=== PATIENT | male | born 1965 | race Caucasian/White ===

== ENCOUNTER 2021-02-17 22:11 | Emergency (ER) | payer BC ==
[2021-02-17 22:22] VITALS: BP 171/124; PULSE 105; RESP 18; TEMP 99.1
--- NOTE | 2021-02-17 22:37 | ED ---
Skin/Abscess/FB HPI - General Chief complaint: Skin/Abscess/Foreign Body Stated complaint: lump under arm Time Seen by Provider: 02/17/21 22:25 Source: patient, RN notes reviewed, old records reviewed Mode of arrival: ambulatory Limitations: no limitations - History of Present Illness Initial comments: This is a 55-year-old male who is noticed some redness and swelling underneath his left arm. Patient does admit to history of significant anxiety and stated the swelling is cause him some significant anxiety. He has concern for some sort of new cancer. Patient has no significant shortness of breath or any other complaints, states he anxiety is what led to his symptoms MD complaint: rash, abscess/boil, other (Swelling under her left arm) -: unknown Tetanus Up to Date: unsure Location: LUE Severity: mild Severity scale (1-10): 1 Consistency: constant Improves with: none Worsens with: none Context: none Associated symptoms: other (none) Treatments Prior to Arrival: none - Related Data Previous Rx's Medication Instructions Recorded Sulfamethox-Tmp 800-160Mg [Bactrim 2 tab PO Q12HR #28 tab 02/18/21 DS 800-160 mg] Allergies Allergy/AdvReac Type Severity Reaction Status Date / Time No Known Allergies Allergy Verified 02/17/21 22:22 Review of Systems ROS Statement: Those systems with pertinent positive or pertinent negative responses have been documented in the HPI. ROS Other: All systems not noted in ROS Statement are negative. Past Medical History Past Medical History: Hypertension History of Any Multi-Drug Resistant Organisms: None Reported Past Surgical History: Cholecystectomy Past Psychological History: Anxiety Smoking Status: Never smoker Past Alcohol Use History: Rare Past Drug Use History: None Reported General Exam - General Exam Comments Initial Comments: Left under arm and axillary folliculitis Limitations: no limitations General appearance: alert, in no apparent distress Head exam: Present: atraumatic, normocephalic, normal inspection Eye exam: Present: normal appearance, PERRL, EOMI. Absent: scleral icterus, conjunctival injection, periorbital swelling ENT exam: Present: normal exam, mucous membranes moist Neck exam: Present: normal inspection. Absent: tenderness, meningismus, lymphadenopathy Respiratory exam: Present: normal lung sounds bilaterally. Absent: respiratory distress, wheezes, rales, rhonchi, stridor Cardiovascular Exam: Present: regular rate, normal rhythm, normal heart sounds. Absent: systolic murmur, diastolic murmur, rubs, gallop, clicks GI/Abdominal exam: Present: soft, normal bowel sounds. Absent: distended, tenderness, guarding, rebound, rigid Extremities exam: Present: normal inspection, full ROM, normal capillary refill. Absent: tenderness, pedal edema, joint swelling, calf tenderness Back exam: Present: normal inspection Neurological exam: Present: alert, oriented X3, CN II-XII intact Psychiatric exam: Present: normal affect, normal mood Skin exam: Present: warm, dry, intact, normal color. Absent: rash Course Vital Signs 02/17/21 22:17 Temperature 99.1 F Pulse Rate 105 H Respiratory 18 Rate Blood Pressure 171/124 O2 Sat by Pulse 98 Oximetry - Reevaluation(s) Reevaluation #1: Medical record is reviewed Symptoms improved here in the ER Patient informed of results and questions answered Medical Decision Making - Medical Decision Making 55 male DF for evaluation patient has significant left under arm folliculitis. Patient placed on antibiotics and can be discharged home - Radiology Data Radiology results: report reviewed (Chest x-rays negative for acute disease), image reviewed Disposition Clinical Impression: Folliculitis Disposition: HOME SELF-CARE Condition: Good Instructions (If sedation given, give patient instructions): Folliculitis (ED) Prescriptions: Sulfamethox-Tmp 800-160Mg [Bactrim DS 800-160 mg] 2 tab PO Q12HR #28 tab Is patient prescribed a controlled substance at d/c from ED?: No Referrals: Chivo Swann MD [Primary Care Provider] - 1-2 days
[2021-02-17] MEDS ORDERED: SULFAMETHOX-TMP 800-160MG 1 EACH TAB PO STA (22:38)
[2021-02-17] MEDS ORDERED: SULFAMETH-TMP DS STARTER PACK 2 TAB BTL PO STA (22:38)
--- NOTE | 2021-02-17 23:04 | XR ---
EXAMINATION TYPE: XR chest 2V DATE OF EXAM: 02/17/2021 COMPARISON: NONE HISTORY: Wrist pain TECHNIQUE: 2 views FINDINGS: Heart and mediastinum are normal. Lungs are clear. Diaphragm is normal. Bony thorax appears normal. IMPRESSION: Normal chest.
== END 2021-02-18 00:10 | disposition home or self-care (01) ==
LOC: EC 22:11
DX: L73.9 Follicular disorder, unspecified (principal); I10 Essential (primary) hypertension
CPT/HCPCS: 71046; 99284

== ENCOUNTER → 2022-11-04 | Outpatient (CLI) | payer BC ==
[2022-11-04 11:35] LABS: Partial Thromboplastin Time 25.5 sec (22.0-30.0); Prothrombin Time 10.6 sec (9.0-12.0)
[2022-11-04 18:33] LABS: HCT 51.4 % (39.6-50.0); HGB 16.8 g/dL (13.0-17.0); MCH 28.3 pg (27.0-32.0); MCHC 32.7 g/dL (32.0-37.0); MCV 86.7 fL (80.0-97.0); Mean Platelet Volume 11.4 fL (9.5-12.2); NRBC Per 100 WBC 0 /100 WBCS (0.0-0.0); Platelet Count 347 X 10*3/uL (140-440); RBC 5.93 X 10*6/uL (4.40-5.60); RDW 14.1 % (11.5-14.5); WBC 5.79 X 10*3/uL (4.50-10.00)
[2022-11-04 18:38] LABS: African American GFR (CKD) 85.9 (60.0-200.0); Albumin 4.5 g/dL (3.8-4.9); Albumin/Globulin Ratio 1.45 (1.60-3.17); Anion Gap 11.4 mmol/L (10.00-18.00); BUN/Creat Ratio 15.64 Ratio (12.00-20.00); Blood Urea Nitrogen 17.2 mg/dL (9.0-27.0); Calcium 9.6 mg/dL (8.7-10.3); Carbon Dioxide 24.6 mmol/L (20.0-27.5); Globulin 3.1 g/dL (1.6-3.3); Non-African American GFR(CKD) 74.1 (60.0-200.0); Potassium 3.6 mmol/L (3.5-5.5); Total Bilirubin 0.4 mg/dL (0.30-1.20); Total Protein 7.6 g/dL (6.2-8.2)
[2022-11-04 22:42] LABS: Appearance,Urine Clear (Clear); Bilirubin,Urine Negative (Negative); Blood,Urine Negative (Negative); Color,Urine Yellow (Yellow); Ketones,Urine Negative (Negative); Nitrite,Urine Negative (Negative); Specific Gravity,Urine 1.016 (1.001-1.030); Urobilinogen,Urine 0.2 (0.2,1.0)
== END | disposition home or self-care (01) ==
LOC: LABPAT 10:15
PROVIDERS: ATTEND Orthopaedic Surgery
DX: Z01.812 Encounter for preprocedural laboratory examination (principal); M16.11 Unilateral primary osteoarthritis, right hip
CPT/HCPCS: 80053; 81003; 85027; 85610; 85730; 87070

== ENCOUNTER 2022-11-16 09:48 | Day surgery (SDC) | payer BC ==
[2022-11-11 14:45] VITALS: BMI 34.2
[~2022-11-16 09:48] MED LIST: ACETAMINOPHEN TAB 500 MG TAB PO PRN; DEXAMETHASONE SOD PHOSPHATE 10 MG/ML 1 ML VIAL IV PRN; DOCUSATE 100 MG CAP PO PRN; FAMOTIDINE 20 MG/2 ML VIAL IVP PRN; KETOROLAC 15 MG/ML 1 ML VIAL IVP PRN; ONDANSETRON 4 MG/2 ML VIAL IVP PRN; TRANEXAMIC ACID IN NACL,ISO-OS 1,000 MG in SALINE 1 100ML.BAG IVPB PRN; oxyCODONE ER 10 MG TAB.ER.12H PO PRN
[2022-11-16] MEDS ORDERED: METOCLOPRAMIDE 5 MG/ML 2 ML VIAL IVP PRN (10:05)
[2022-11-16] MEDS ORDERED: HYDROmorphone 0.5 MG/0.5 ML SYRINGE IVP PRN ×3 (10:05→14:00)
[2022-11-16] MEDS ORDERED: LIDOCAINE 1% (10MG/ML) FOR IV START INTRADERMA PRN (10:05)
[2022-11-16] MEDS ORDERED: LACTATED RINGERS 1,000 ML IV SCH (10:05)
[2022-11-16] MEDS ORDERED: MIDAZOLAM 2 MG/2 ML VIAL IVP ONE (11:32)
[2022-11-16] MEDS ORDERED: DEXAMETHASONE SOD PHOSPHATE 4 MG/ML 1 ML VIAL ONE (11:36)
[2022-11-16] MEDS ORDERED: GLYCOPYRROLATE 0.2 MG/ML 2 ML VIAL ONE (11:36)
[2022-11-16] MEDS ORDERED: MIDAZOLAM 2 MG/2 ML VIAL ONE (11:36)
[2022-11-16] MEDS ORDERED: PHENYLEPHRINE-0.9% NACL SYG 1,000 MCG/10 ML SYRINGE ONE (11:36)
[2022-11-16] MEDS ORDERED: HYDROmorphone (PF) 1 MG/ML ONE (11:36)
[2022-11-16] MEDS ORDERED: SUCCINYLCHOLINE CHLORIDE 200 MG/10 ML VIAL IV ONE (11:36)
[2022-11-16] MEDS ORDERED: NEOSTIGMINE 1 MG/ML 10 ML VIAL ONE (11:36)
[2022-11-16] MEDS ORDERED: LIDOCAINE 2% INJ 20 MG/ML (2 ML VIAL) ONE (11:36)
[2022-11-16] MEDS ORDERED: fentaNYL (PF) 50 MCG/ML 2 ML AMP ONE (11:36)
[2022-11-16] MEDS ORDERED: ROPIVACAINE 5 MG/ML 30 ML VIAL ONE (11:36)
[2022-11-16] MEDS ORDERED: ePHEDrine 50 MG/ML 1 ML VIAL ONE (11:36)
[2022-11-16] MEDS ORDERED: ROCURONIUM 10 MG/ML (5 ML VIAL) IV ONE (11:36)
[2022-11-16] MEDS ORDERED: PROPOFOL 10 MG/ML 20 ML VIAL IV ONE (11:36)
[2022-11-16] MEDS ORDERED: TRANEXAMIC ACID IN NACL,ISO-OS 1,000 MG/100 ML BAG ONE (11:36)
[2022-11-16] MEDS: ROPIVACAINE/EPI/CLONIDINE/KET 50 ML SYRINGE MISCELLANE PRN ×2 (11:54→13:30)
[2022-11-16] MEDS ORDERED: LACTATED RINGERS 1,000 ML IV ONE ×2 (13:00→15:15)
[2022-11-16] MEDS ORDERED: HYDROcodone/APAP 5-325MG 1 EACH TAB PO PRN (14:00)
[2022-11-16] MEDS ORDERED: HYDROmorphone 1 MG/ML 1 ML SYRINGE IVP PRN (14:00)
[2022-11-16] MEDS ORDERED: ONDANSETRON 4 MG/2 ML VIAL IVP PRN (14:00)
[2022-11-16] MEDS ORDERED: NALOXONE 0.4 MG/ML 1 ML VIAL IV PRN (14:00)
[2022-11-16] MEDS ORDERED: hydrOXYzine pamoate 25 MG CAP PO PRN (14:00)
--- NOTE | 2022-11-16 14:01 | P.OP ---
Date of Procedure: 11/16/22 Preoperative Diagnosis: Right hip osteoarthritis Postoperative Diagnosis: Same Procedure(s) Performed: Right direct anterior total hip arthroplasty Implants: 1. Brittney Trident II Acetabular Cup, Size #58 2. [place] Insignia Size #9 Femoral Stem, Standard Offset 3. Biolox delta femoral head, 36 mm, - 5 mm neck Anesthesia: carmen CHIU Surgeon: Darrell Rodriguez Treadle Cut Off Saw Operator #1: Tito Nash Estimated Blood Loss (ml): 200 IV fluids (ml): 1,100 Pathology: none sent Condition: stable Disposition: PACU Indications for Procedure: The patient is a very pleasant 57-year-old male with a history of bilateral hip pain. His x-rays showed mild to moderate arthritis. His exam was consistent with hip arthritis so he was sent for an image guided injection into his right hip. This provided almost complete relief of his pain. I met with the patient in the office. After the effects of the injection wore off he had pain in the right hip and groin. He had pain with passive range of motion of the hip. We discussed continued nonsurgical treatment versus surgery. Even the patient's age and complete response to an injection to both agreed a total hip replacement would be the most predictable solution for his pain having, failed nonsurgical treatment. I had a long discussion with the patient in the office on the potential risks and complications of an elective total hip replacement through a direct anterior approach. Risks discussed include, but are certainly not limited to, risks from anesthesia, superficial infection requiring local wound care or antibiotics, deep barrie-prosthetic joint infection and the treatment required to eradicate infection, intraoperative fracture, postoperative periprosthetic fracture, damage to local blood vessels or nerves particularly the lateral femoral c utaneous nerve, delayed wound healing requiring local wound care or possibly surgical debridement, hip dislocation, leg length discrepancy, soft tissue irritation around the total hip implant such as iliopsoas tendinitis or trochanteric bursitis, wear and osteolysis from the implants, squeaking or audible noises, groin pain, thigh pain, heterotopic ossification, stiffness, aseptic loosening of the implants, dissatisfaction with surgical outcome, need for revision surgery, DVT, PE, swelling of the operative extremity, acute coronary event, stroke, failure to thrive, and possibly loss of life or limb. The patient understands that while these are the most common complications after an elective hip replacement there are certainly other less common complications possible. They were given ample time to ask questions regarding the potential complications of a hip replacement. Following our discussion the patient provided their verbal and written consent to go forward with an elective total hip replacement. Operative Findings: Large tear effusion in the right hip. Inflamed synovium. Moderate cartilage loss through out the femoral head. Severe cartilage loss with peripheral osteophytes in the acetabulum. Description of Procedure: The patient was identified in the preoperative holding area and the correct hip was marked with my initials. I reviewed the procedure and consent with the patient. All of their questions were answered. The patient was then brought back into the operating room by anesthesia. While on the [facility] anesthesia was administered by the anesthesia team. Preoperative antibiotics and tranexamic acid were also given. After the patient was under anesthesia I examined their ankles to determine their preoperative leg length discrepancy. The skin over the anterior aspect of the hip was shaved to remove hair over the site of planned incision. Both feet and ankles were padded with webril and boots for the [place] were applied. The patient was then carefully transferred onto the [place] table. A perineal post was immediately placed. The arms were placed on arm holders and were well-padded. Both boots were secured to the spars on the [place] table. The patient was positioned so that the pelvis was centered over the post. Nonsterile drapes were applied. A timeout was performed identifying the correct patient, operative extremity, and procedure. At this point fluoroscopy was brought in to take preoperative images of the pelvis and operative hip. Using the standing AP pelvis from the office as a template, a comparable image was obtained with fluoroscopy. A metallic bar was used to create a bi-ischial line for use as a reference to leg length adjustments during the procedure. Global offset was also measured on both the operative and nonoperative leg. Fluoroscopy was then brought out and a pre-scrub using a chlorhexidine scrub brush was performed. The operative limb was then prepped and draped in the standard sterile fashion. An anterior longitudinal incision was made lateral and distal to the ASIS. The skin and subcutaneous tissues were incised sharply. The underlying tensor fa scia was identified and incised in its midportion. The fascia was dissected free from the underlying muscle and the muscle belly was retracted. A blunt tipped cobra retractor was placed over the superior neck under the muscle fibers of the gluteus minimus. The deep enveloping fascia of the tensor was incised. The anterior leash of vessels were then identified and cauterized. The fascia between the rectus and the capsule was then incised and the pre-capsular fat was excised. A second Cobra was placed inferior to the neck. The interval between the rectus and iliocapsularis and the hip capsule was developed and a retractor was placed carefully over the anterior rim of the acetabulum. A T-shaped anterior capsulotomy was performed. The superior capsular leaflet was left in place in the inferior capsular flap was excised. The Cobra retractors were placed intracapsularly. We then made a femoral neck osteotomy according to preoperative and intraoperative templating and confirmed the level of the osteotomy using fluoroscopic imaging. The femoral head was removed, passed off to the back table, and sized. The superior capsular flap was excised. Retractors were placed circumferentially exposing the acetabulum. We then circumferentially debrided the acetabulum free of labrum and osteophytes. The pulvinar was removed to fully visualize the cotyloid fossa. We then sequentiall y reamed to achieve peripheral fit and excellent bleeding subchondral bone. The socket was thoroughly irrigated. The acetabular component was impacted into the appropriate position using fluoroscopy to guide version, inclination, and depth of insertion taking care to have a comparable image of the AP pelvis to the standing image taken in the office. An excellent press-fit was achieved and final position was confirmed using fluoroscopy. The press fit was augmented with bony cancellus dome screws. The liner was then impacted into the socket. Attention was then turned to the femur. The remnant dorsal lateral capsule was excised. The short external rotators were visible and protected. A bone hook was used to confirm appropriate translation of the trochanter away from the acetabulum. The leg was then extended and adducted and the bone hook was used to elevate the femur for broaching. A box osteotome and blunt tipped canal sound was then utilized to gain access to the femoral canal. We then sequentially broached the femur in appropriate anteversion until excellent torsional stability was achieved. The neck cut was brought flush to the trial broach with a calcar planar. A trial neck and head were then placed onto the broach and the hip was atraumatically reduced under direct visualization. External rotation to 90 was performed to assess stability. Fluoroscopy was brought in. An AP and lateral fluoroscopic image of the proximal femur was obtained to assess position and fill of the trial broach. An AP of the pelvis was then obtained and matched to the preoperative image taken. A bi-ischial bar was then placed and measurements were taken to assess changes in length and offset. The hip was then carefully dislocated, the proximal femur was exposed, and the trial implants were removed. The wound and proximal femur was thoroughly irrigated using sterile saline and pulsatile lavage. The final femoral implant was dispensed and gently tapped into place generating an excellent press-fit. The trunnion was cleansed and the final head was tapped into place to engage the Wright taper. The acetabulum was irrigated and visualized to be free of debris. The hip was carefully reduced. Stability was checked clinically with external rotation to 90 and there was no evidence of instability. Final fluoroscopic images were taken. The wound was then thoroughly irrigated and soaked with a dilute Betadine rinse for 3 minutes. 3 L of sterile saline was irrigated through the wound using pulsatile lavage. Local anesthetic cocktail was injected into the soft tissues around the surgical field. A deep drain was placed. The wound was then closed in layers. A sterile dressing was placed over the surgical incision and drain site. The drapes were taken down and the patient was carefully transferred off of the [place] table. Following removal of the boots the leg lengths felt acceptable. The patient was then taken to recovery room having tolerated the procedure well. Tito Nash PA-C was required as a skilled teachers' assistant for patient positioning, surgical exposure, retraction, placement of implants, and closure of the surgical wound. PLAN: The patient can weight-bear as tolerated on the operative extremity. 2 doses of postoperative antibiotics. DVT prophylaxis with aspirin 81 mg twice a day based on preoperative risk stratification. Physical therapy for gait training. Discontinue drain postoperative day #1 if output is less than 100 mL per shift.
--- NOTE | 2022-11-16 14:31 | XR ---
Intraoperative/procedural fluoroscopic services were provided for total right hip arthroplasty. Hardw are appears intact with appropriate alignment. Total fluoroscopy time is 25 seconds with a total of 7 submitted images to PACS. Please see the operative note for further details.
[2022-11-16] MEDS: HYDROcodone/APAP 5-325MG 1 EACH TAB PO PRN (17:35)
[2022-11-16] MEDS ORDERED: ALPRAZolam 0.25 MG TAB PO PRN (18:03)
--- NOTE | 2022-11-16 18:05 | P.CONS ---
History of Present Illness - Reason for Consult Consult date: 11/16/22 HTN Requesting physician: Darrell Rodriguez - Chief Complaint leg pain - History of Present Illness Patient is a 57-year-old male with hypertension who presented for elective direct anterior right total hip arthroplasty. Patient tolerated the procedure well without any immediate postoperative complications. He has a history of hallucinations with anesthesia in the past but is currently doing well. Patient seen and examined at bedside. He reports pain with movement of his leg, and pain is 5 out of 10 at rest. He states is having severe pain prior to surgery. He has slightly worried about taking pain medications as he has had a history of hallucinations and poor reactions to anesthesia in the past. Lately he denies any headache, lightheadedness, dizziness, nausea, vomiting. He was asking for his as needed Xanax encase he has a poor reaction to the pain medications. He usually takes 0.25 mg Pertinent positives and negatives as discussed in HPI, a complete review of systems was performed and all other systems are negative. Vital signs reviewed General: nontoxic, no distress, appears at stated age Derm: warm, dry Head: atraumatic, normocephalic, symmetric Eyes: EOMI, no lid lag, anicteric sclera, pupils equal round reactive to light ENT: Nose and ears atraumatic, no thrush, no pharyngeal erythema Neck: No thyromegaly, no cervical lymphadenopathy, trachea midline, supple Mouth: no lip lesion, mucus membranes moist Cardiovascular: S1S2 reg, no murmur, positive posterior tibial pulse bilateral, no edema, capillary refill less than 2 seconds Lungs: clear to auscultation bilateral, no rhonchi, no rales, no wheeze, no accessory muscle use Ext: no gross muscle atrophy, muscle strength 5 out of 5 bilateral upper extremities, no contractures Neuro: CN II-XII grossly intact, finger to nose within normal limits, Psych: Alert, oriented, appropriate affect Assessment/Plan: 57-year-old male status post direct anterior right total hip arthroplasty HTN - resume BP medcation in AM Anxity -resume lexapro in AM and prn xanax - follow BP post-op and check CBC in AM Thank you for allowing us to participate in the care of this pleasant patient. Do not hesitate to contact us with questions. Someone can be reached from the [facility] hospitalist group all hours of the day at [phone] or via [employer]. Past Medical History Past Medical History: Hypertension History of Any Multi-Drug Resistant Organisms: None Reported Past Surgical History: Cholecystectomy Past Anesthesia/Blood Transfusion Reactions: Previous Problems w/ Anesthesia Additional Past Anesthesia/Blood Transfusion Reaction / Comm: PT HAD A DIFFICULT TIME WAKING UP AFTER HIS GIOVANI, WHEN HE DID GO HOME HE WAS SOMEWHAT CONFUSED AND WAS RUNNING AROUND THE HOUSE AND STANDING IN THE STREET. HIS SON HAD A SIMILAR REACTION TO ANESTH. Past Psychological History: Anxiety Smoking Status: Never smoker Past Alcohol Use History: None Reported Past Drug Use History: None Reported - Past Family History Mother Family Medical History: No Reported History Medications and Allergies Home Medications Medication Instructions Recorded Confirmed Type Benazepril/Hydrochlorothiazide 1 each PO DAILY 11/11/22 11/11/22 History [Benazepril-Hctz 20-25 mg Tab] Escitalopram [Lexapro] 5 mg PO DAILY 11/11/22 11/11/22 History Metoprolol Tartrate [Lopressor] 12.5 mg PO BID 11/11/22 11/11/22 History Allergies Allergy/AdvReac Type Severity Reaction Status Date / Time No Known Allergies Allergy Verified 11/16/22 11:12 Physical Exam Osteopathic Statement: *. No significant issues noted on an osteopathic structural exam other than those noted in the History and Physical/Consult. Vitals: Vital Signs Temp Pulse Resp BP Pulse Ox 11/16/22 15:23 91 16 108/57 93 L 11/16/22 15:08 84 16 107/54 93 L 11/16/22 14:53 86 16 106/55 95 11/16/22 14:38 93 16 112/55 98 11/16/22 14:23 90 16 110/53 96 11/16/22 14:08 97.1 F L 78 16 100/50 92 L 11/16/22 11:37 80 16 124/86 98 11/16/22 10:20 97.4 F L 75 16 143/85 98 Intake and Output 11/16/22 11/16/22 11/16/22 06:59 14:59 22:59 Intake Total 2049 50 Output Total 200 Balance 1849 50 Intake: IV 2049 50 Output: Estimated Blood Loss 200 Other: Weight 115.4 kg
[2022-11-16] MEDS: ASPIRIN 81 MG PO SCH (20:03)
[2022-11-16] MEDS: LACTATED RINGERS 1,000 ML IV SCH (20:03)
--- NOTE | 2022-11-16 20:25 | P.ANPRN ---
Procedure Note - Anesthesia - Nerve Block Performed Right Rm Single Time Out Performed: Yes Date of Procedure: 11/16/22 Procedure Start Time: 11:31 Procedure Stop Time: 11:34 Location of Patient: PreOp Indication: Acute Post-Operative Pain, Requested by Surgeon Sedation Type: Sedate with meaningful contact maintained Preparation: Sterile Prep Position: Supine Needle Types: Pajunk Needle Gauge: 21 Ultrasound used to visualize needle placement: Yes Ultrasound used to observe medication spread: Yes Blood Aspirated: No Pain Paresthesia on Injection Noted: No Resistance on Injection: Normal Image Stored and Saved: Yes Events: Uneventful and Well Tolerated (Ropivacaine 0.5% 20 mL plus dexamethasone 4 mg)
[2022-11-16] MEDS ORDERED: SENNOSIDES-DOCUSATE SODIUM 1 EACH TAB PO SCH (21:00)
[2022-11-17] MEDS: LACTATED RINGERS 1,000 ML IV SCH ×2 (01:09→11:02)
[2022-11-17] MEDS: ASPIRIN 81 MG PO SCH (08:18)
[2022-11-17] MEDS: HYDROcodone/APAP 5-325MG 1 EACH TAB PO PRN (08:19)
--- NOTE | 2022-11-17 08:42 | P.DS ---
Providers Expected date of discharge: 11/17/22 Attending physician: Darrell Rodriguez Consults: 11/16/22 14:00 Consult Physician Routine Consulting Provider: Radha Mccartney Consult Reason/Comments: medical management Do you want consulting provider notified?: Yes Primary care physician: Stated None Hospital Course: This is a 57-year-old male who has been followed in our office by Dr. Rodriguez f or continued complaints of right hip pain due to right hip osteoarthritis. Treatment options were discussed, and patient elected to undergo a right total hip arthroplasty. Patient was seen pre-operatively by Dr. Swann and cleared for surgery. Patient underwent a right direct anterior total hip arthroplasty on 11/16/22. The procedure was performed without complication or sequelae. The patient is doing fairly well postoperatively. Vital signs and labs are stable on postoperative day #1. Patient was examined bedside today. Patient states he is overall doing very well and the pain in his right hip is well-controlled. His hemovac drain was pulled earlier this morning. He has been ambulating with a walker with minimal assistance. Patient is comfortable being discharged home today. Patient denies new complaints the day of discharge. Hemovac drain removed bedside during exam. On examination, the patient is sitting up in the bed in no apparent distress. He is alert and orientated 3. On inspection of the right hip, there is a clean, dry, intact surgical dressing in place. There is no bleeding or drainage to the dressing. Patient has good strength and ROM of the right ankle and toes. Motor and sensory function is intact of the right lower extremity. Femoral nerve function intact.The dorsalis pedis pulse is easily palpable, the right lower extremity is warm and well perfused with brisk capillary refill. Calf is soft and non-tender to palpation. Patient is discharged home with home health in good condition, pending medical clearance. Patient will follow-up with Dr. Rodriguez in the office in 2 weeks. Please see med rec for accurate list of discharge medication. Plan - Discharge Summary Discharge Rx Participant: No New Discharge Prescriptions: New Aspirin 81 mg PO BID 30 Days #60 tab Docusate [Colace] 100 mg PO BID #60 capsule HYDROcodone/APAP 5-325MG [[place] 5-325] 1 - 2 tab PO Q6HR PRN 7 Days #32 tab PRN Reason: Pain Omeprazole 40 mg PO DAILY 30 Days #30 cap Diclofenac Sodium [Voltaren] 75 mg PO BID 30 Days #60 tab No Action Benazepril/Hydrochlorothiazide [Benazepril-Hctz 20-25 mg Tab] 1 each PO DAILY Metoprolol Tartrate [Lopressor] 12.5 mg PO BID Escitalopram [Lexapro] 5 mg PO DAILY Discharge Medication List Benazepril/Hydrochlorothiazide [Benazepril-Hctz 20-25 mg Tab] 1 each PO DAILY 11/11/22 [History] Escitalopram [Lexapro] 5 mg PO DAILY 11/11/22 [History] Metoprolol Tartrate [Lopressor] 12.5 mg PO BID 11/11/22 [History] Aspirin 81 mg PO BID 30 Days #60 tab 11/17/22 [Rx] Diclofenac Sodium [Voltaren] 75 mg PO BID 30 Days #60 tab 11/17/22 [Rx] Docusate [Colace] 100 mg PO BID #60 capsule 11/17/22 [Rx] HYDROcodone/APAP 5-325MG [[place] 5-325] 1 - 2 tab PO Q6HR PRN 7 Days #32 tab 11/17/22 [Rx] Omeprazole 40 mg PO DAILY 30 Days #30 cap 11/17/22 [Rx] Follow up Appointment(s)/Referral(s): Darrell Rodriguez MD [Medical Doctor] - 2 Weeks Activity/Diet/Wound Care/Special Instructions: Weight bear to tolerance on operative extremity with a walker. Keep operative dressing in place until follow-up appointment in the office. Call the office if dressing becomes saturated or falls off. May shower over dressing. Take pain medications as prescribed. Take aspirin 81mg BID x 4 weeks for blood clot prevention. Follow-up in the office at [facility] in 2 weeks. Call the office with any questions or concerns, Discharge Disposition: HOME WITH HOME HEALTH SERVICES
[2022-11-17] MEDS ORDERED: lisinopriL 20 MG TAB PO SCH (09:00)
[2022-11-17] MEDS ORDERED: METOPROLOL TARTRATE 12.5 MG TAB PO SCH (09:00)
[2022-11-17] MEDS ORDERED: ESCITALOPRAM 5 MG TAB PO SCH (09:00)
[2022-11-17] MEDS ORDERED: hydroCHLOROthiazide 25 MG TAB PO SCH (09:00)
[2022-11-17 09:15] VITALS: BP 113/67; PULSE 87; TEMP 98.1
[2022-11-17 09:40] LABS: Basophils # (A) 0.02 X 10*3/uL (0.00-0.10); Basophils % (A) 0.1 %; Eosinophils # (A) 0 X 10*3/uL (0.04-0.35); Eosinophils % (A) 0 %; HCT 39.2 % (39.6-50.0); Immature Grans, Automated 0.3 %; Lymphocytes # (A) 1.13 X 10*3/uL (0.90-5.00); Lymphocytes % (A) 7.5 %; MCH 28.4 pg (27.0-32.0); MCHC 33.2 g/dL (32.0-37.0); MCV 85.8 fL (80.0-97.0); Mean Platelet Volume 11.5 fL (9.5-12.2); Monocytes % (A) 7.9 %; NRBC Per 100 WBC 0 /100 WBCS (0.0-0.0); Neutrophils # (A) 12.75 X 10*3/uL (1.80-7.70); Neutrophils % (A) 84.2 %; Platelet Count 312 X 10*3/uL (140-440); RBC 4.57 X 10*6/uL (4.40-5.60); RDW 14.2 % (11.5-14.5); WBC 15.15 X 10*3/uL (4.50-10.00)
[2022-11-17 11:46] VITALS: RESP 16
--- NOTE | 2022-11-17 13:46 | P.PN ---
Subjective Progress Note Date: 11/17/22 Patient seen and examined while getting physical therapy. Patient denies chest pain shortness breath nausea vomiting fevers and chills. Patient's hip pain is well controlled. Patient is eager to go home today. Objective - Vital Signs Vital signs: Vital Signs Temp 98.1 F 11/17/22 07:20 Pulse 87 11/17/22 07:20 Resp 16 11/17/22 08:18 BP 113/67 11/17/22 07:20 Pulse Ox 92 L 11/17/22 07:44 FiO2 Intake & Output 11/16/22 11/17/22 11/17/22 18:59 06:59 18:59 Intake Total 2218 Output Total 200 250 Balance 2017 - Weight 115.4 kg Intake: IV 2100 Oral 118 Output: Drainage 250 Right Hip 250 Estimated Blood Loss 200 Other: Voiding Method Toilet # Voids 1 1 - Exam General: [non toxic], [no distress], [appears at stated age] Derm: [warm], [dry] Head: [atraumatic], [normocephalic], [symmetric] Eyes: [EOMI], [no lid lag], [anicteric sclera] Mouth: [no lip lesion], [mucus membranes moist] Cardiovascular: [S1S2 reg], [no murmur], [positive posterior tibial pulse bilateral], Lungs: [CTA bilateral], [no rhonchi, no rales] , [no accessory muscle use] Abdominal: [soft], [ nontender to palpation], [no guarding], [no appreciable organomegaly] Ext: [no gross muscle atrophy], [no edema], [no contractures] Neuro: [ CN II-XI grossly intact], [no focal neuro deficits] Psych: [Alert], [oriented], [appropriate affect] - Labs CBC & Chem 7: 11/17/22 06:20 Labs: Abnormal Lab Results - Last 24 Hours (Table) 11/17/22 Range/Units 06:20 WBC 15.15 H (4.50-10.00) X 10*3/uL Hct 39.2 L (39.6-50.0) % Immature Gran # 0.05 H (0.00-0.04) X 10*3/uL Neutrophils # 12.75 H (1.80-7.70) X 10*3/uL Monocytes # 1.20 H (0.20-1.00) X 10*3/uL Eosinophils # 0 L (0.04-0.35) X 10*3/uL Assessment and Plan Assessment: HTN - resume BP medcation Anxity -resume lexapro in AM and prn xanax Thank you for allowing us to participate in the care of this pleasant patient. Do not hesitate to contact us with questions. Someone can be reached from the [facility] hospitalist group all hours of the day at [phone] or via perfect serve. Disposition home today
== END 2022-11-17 12:25 | disposition home health service (06) ==
LOC: OR 09:48 → 4SSUR 14:00 → OR 11-17 12:25
PROVIDERS: ATTEND Orthopaedic Surgery
DX: M16.11 Unilateral primary osteoarthritis, right hip (principal); G89.18 Other acute postprocedural pain; F32.A Depression, unspecified; I10 Essential (primary) hypertension; F41.9 Anxiety disorder, unspecified; R63.4 Abnormal weight loss; F10.90 Alcohol use, unspecified, uncomplicated; Z90.49 Acquired absence of other specified parts of digestive tract; Z79.1 Long term (current) use of non-steroidal anti-inflammatories (NSAID); Z79.899 Other long term (current) drug therapy; Z82.49 Family history of ischemic heart disease and other diseases of the circulatory system
CPT/HCPCS: 27130; 64447 ×2; 94760 ×2; 97161; 76942; 86900; 86901; 85025; 86850; 73501; C1776; J2250; J0330; J1100 ×2; J2710; J0690 ×2; J2405; J3010; J1170; J2795; J1885; J2370; J2704; J2001; 88300

== ENCOUNTER → 2022-11-23 | Outpatient (CLI) | payer BC ==
--- NOTE | 2022-11-24 07:20 | US ---
EXAMINATION TYPE: US venous doppler duplex LE RT DATE OF EXAM: 11/23/2022 4:21 PM COMPARISON: NONE CLINICAL HISTORY: RLE; I80.9. Right hip replaced x 1 week ago. Right ankle swelling. No redness. O n baby aspirin. SIDE PERFORMED: Right TECHNIQUE: The lower extremity deep venous system is examined utilizing real time linear array sonog ayaka with graded compression, doppler sonography and color-flow sonography. VESSELS IMAGED: Common Femoral Vein Deep Femoral Vein Greater Saphenous Vein * Femoral Vein Popliteal Vein Small Saphenous Vein * Proximal Calf Veins (* superficial vessels) Right Leg: Negative for DVT, Grayscale, color doppler, spectral doppler imaging performed of the radha p veins of the lower extremities. There is normal flow, compressibility, vascular waveforms. IMPRESSION: No evidence for deep vein thrombosis of the right lower extremity.
== END | disposition home or self-care (01) ==
LOC: RADUSWWP 15:57
PROVIDERS: ATTEND Orthopaedic Surgery
DX: I80.9 Phlebitis and thrombophlebitis of unspecified site (principal); M25.551 Pain in right hip; Z96.641 Presence of right artificial hip joint; Z47.1 Aftercare following joint replacement surgery